=== PATIENT | male | born 1990 | race Hispanic/Latino ===

== ENCOUNTER 2025-06-07 08:49 | Emergency (ER) | payer BC ==
[~2025-06-07] VITALS: Ht 170.2 cm; Wt 163.3 kg
--- NOTE | 2025-06-07 09:36 | ERN ---
ED Note History of Present Illness Stated Complaint: BACK PAIN Chief Complaint: Back Pain or Injury Time Seen by MD: 08:50 Dictation: 34-YEAR-OLD MALE PRESENTING TO THE EMERGENCY DEPARTMENT WITH THE ACUTE ONSET OF MID LOW BACK PAIN [place] OUT [place], PATIENT REPORTS THAT SYMPTOMS GOT WORSE THIS MORNING UPON GETTING UP FROM BED. NO URINARY RETENTION IS ABLE TO AMBULATE BUT HAS A LOT Allergies: Coded Allergies: No Known Drug Allergies (Unverified Allergy, Unknown, 06/07/25) Past Medical History Past Medical History: No Pertinent History Surgical History: None Review of System Dictation CONSTITUTIONAL: NEGATIVE FOR FEVER,CHILLS, AND WEIGHT LOSS EYES: NEGATIVE FOR INJURY, PAIN,REDNESS, AND DISCHARGE ENT: NEGATIVE FOR INJURY,PAIN OR SWELLING CARDIOVASCULAR: NEGATIVE FOR CHEST PAIN, PALPITATIONS, AND EDEMA RESPIRATORY: NEGATIVE FOR SHORTNESS OF BREATH, COUGH, AND WHEEZING, ABDOMEN/GI: NEGATIVE FOR ABDOMINAL PAIN, NAUSEA, VOMITING, DIARRHEA, AND CONSTIPATION BACK: PER HPI : NEGATIVE FOR INJURY, BLEEDING AND DISCHARGE MS/EXTREMITY: NEGATIVE FOR INJURY AND DEFORMITY SKIN: NEGATIVE FOR RASH, AND DISCOLORATION NEURO: NEGATIVE FOR HEADACHE, WEAKNESS, NUMBNESS, TINGLING, AND SEIZURE PSYCH: NEGATIVE FOR SUICIDE IDEATION, HOMICIDAL IDEATION, AND HALLUCINATIONS Initial Vital Sign VS Vital Signs Date Time Temp Pulse Resp B/P (MAP) Pulse Ox O2 Delivery O2 Flow Rate FiO2 06/07/25 08:50 98.2 99 19 110/71 99 Room Air 0 06/07/25 09:46 21 Physical Exam Dictation GENERAL: AWAKE, ALERT, APPEARS UNCOMFORTABLE HEAD/FACE: NORMOCEPHALIC, ATRAUMATIC EYES: PERRL, EOMI, VISION AT BASELINE ENT: ORAL CAVITY CLEAR, TMS CLEAR, NO SIGNS OF INFECTION NECK: TRACHEA MIDLINE, SUPPLE, NO NUCHAL RIGIDITY CARDIOVASCULAR: RRR, NORMAL S1/S2, NO MRGS, NO JVD RESPIRATORY: CTAB, NO RESPIRATORY DISTRESS, NO RALES OR WHEEZES ABDOMEN: SOFT, NON-TENDER, NON-DISTENDED, NORMAL BOWEL SOUNDS, NO GUARDING OR REBOUND. SKIN: WARM, DRY, NORMAL TURGOR, NO RASH MS/EXTREMITY: PULSES EQUAL, NO CYANOSIS, NEUROVASCULAR INTACT, FROM NEURO: COAX4, GCS 15, STRENGTH 5/5, CN 2-12 INTACT, NORMAL CEREBELLAR EXAM, NORMAL GAIT, PSYCH: NORMAL BEHAVIOR, MOOD, AND AFFECT NORMAL Results (Laboratory/Radiology) X-RAY Comment: X-RAYS REVIEWED AND INTERPRETED BY ME, L-SPINE NO FRACTURES OR DISLOCATIONS NOTED ED Course ED Course Orders Procedure Category Date Status Time Diazepam 5 Mg/Ml 2 Ml PHA 06/07/25 Complete Syg (Valium 5 Mg/M 08:51 Lumbar Spine 2-3vws RAD 06/07/25 Resulted 08:51 Ketorolac PHA 06/07/25 Complete Tromethamine 30mg/Ml 09:00 Current Medications Medications (Trade) Dose Ordered Sig/Miguel Route PRN Reason Start Time Stop Time Status Last Admin Dose Admin Diazepam (VALium 5 MG/ML 2 ML SYG) 5 mg ONCE STAT IM 06/07/25 08:51 06/07/25 08:57 DC 06/07/25 09:58 Ketorolac Tromethamine (toRADol) 30 mg ONCE ONCE IM 06/07/25 09:00 06/07/25 09:01 DC 06/07/25 09:57 Vital Signs Date Time Temp Pulse Resp B/P (MAP) Pulse Ox O2 Delivery O2 Flow Rate FiO2 06/07/25 09:46 98.2 99 19 110/71 99 Room Air* 0 21 06/07/25 08:50 98.2 99 19 110/71 99 Room Air 0 Medical Decision Making MDM MDM: DIFFERENTIAL DIAGNOSIS: RATIONALE: TESTS CONSIDERED AND ORDERED SECONDARY TO SHARED DECISION MAKING INCLUDE: PREVIOUS OUTSIDE RECORDS REVIEWED: OLD ER VISITS. RISK OF COMPLICATION AND/OR MORBIDITY OR MORTALITY OF PATIENT MANAGEMENT: NONE MEDICATIONS-PER MEDICATION RECONCILIATION NEED FOR HOSPITALIZATION: PATIENT DOES NOT MEET CRITERIA FOR HOSPITALIZATION. NEED FOR EMERGENCY MAJOR/MINOR SURGERY: NO THERE ARE NO SOCIAL CONCERNS WITH THIS PATIENT. PRESCRIPTION DRUG MANAGEMENT PRESCRIPTIONS WILL INCLUDE SYMPTOMATIC CARE PATIENT'S PRIOR EXTERNAL MEDICAL RECORDS FROM OTHER ER VISITS WERE REVIEWED BY ME INDICATED. PRIOR TESTING AND RESULTS FROM PREVIOUS VISITS WERE REVIEWED. PRIOR TESTS WERE TAKEN INTO ACCOUNT WITH MEDICAL DECISION MAKING AND RESOURCE UTILIZATION, INDEPENDENT HISTORIAN/HISTORIANS WERE USED TO OBTAIN COMPLETE MEDICAL HISTORY. I INDEPENDENTLY INTERPRETED THE TEST THAT WERE PERFORMED, RESULTS WERE REVIEWED BY ME AND CONSIDERED FINDINGS ON RADIOLOGY IF ORDERED. MEDICAL MANAGEMENT AND EXAMINATION INTERPRETATION DISCUSSIONS WERE HAD BY ME WITH OTHER QUALIFIED HEALTHCARE PROFESSIONALS INDICATED FOR THE PATIENT'S CARE. 34-YEAR-OLD LOW BACK PAIN WITH MUSCLE SPRAIN, STABLE EXAM NEGATIVE X-RAY SYMPTOMS IMPROVED AFTER MEDICATION PRESCRIPTIONS GIVEN. DX & DISP Disposition: Discharge Departure Impression: Primary Impression: Low back sprain Condition: Stable Scripts Cyclobenzaprine HCl (Cyclobenzaprine HCl) 5 Mg Tablet 5 MG PO BID for 5 Days, #10 TAB Prov: SAI WOODSON MD 06/07/25 Naproxen (Naproxen) 250 Mg Tablet 250 MG PO BID for 5 Days, #10 TAB Prov: SAI WOODSON MD 06/07/25 Referrals: SELF,REFERRAL (PCP) SAI WOODSON MD Jun 07, 2025 09:36
--- NOTE | 2025-06-07 10:28 | HMCIMG ---
EXAM: CR Lumbar Spine, 3 View. CLINICAL HISTORY: pain COMPARISON: None provided. FINDINGS: BONES: No acute fracture or aggressive appearing osseous lesion. Possible chronic bilateral pars interarticularis defects at L5. Could be further evaluated with CT scan. ALIGNMENT: Grade 1 retrolisthesis L4 over L5 of approximately 4 mm. No significant scoliosis. DISCS / DEGENERATIVE CHANGES: Mild degenerative disc space narrowing at L4-5 and L5-S1. SOFT TISSUES: The soft tissues are unremarkable. IMPRESSION: No acute lumbar spine abnormality evident. Degenerative disc space narrowing L4-5 and L5-S1. Grade 1 retrolisthesis L4 over L5 approximately 4 mm. Suggestion for chronic bilateral pars interarticularis defects at L5. This could be further evaluated with CT scan or MRI scan. /[place]
[2025-06-07] MEDS ORDERED: NAPR-1196 PO (10:39)
[2025-06-07] MEDS ORDERED: CYCL5TAB3 PO (10:39)
[2025-06-07 10:53] VITALS: BP 126/83; PULSE 87; RESP 12; TEMP 98.7; O2SAT 99
--- NOTE | 2025-06-07 19:28 | NUR ---
PRESCRIPTION RESENT TO HOWIE SANTIZO REQUESTED BY PATIENT
== END 2025-06-07 11:03 | disposition home or self-care (01) ==
LOC: EDH 08:49
DX: S33.9XXA Sprain of unspecified parts of lumbar spine and pelvis, initial encounter (principal); X58.XXXA Exposure to other specified factors, initial encounter; Y93.89 Activity, other specified; Y92.89 Other specified places as the place of occurrence of the external cause; Y99.8 Other external cause status
CPT/HCPCS: 99284; 72100; 96372 ×2; J1885; J3360